=== PATIENT | female | born 1995 | race Two or more races ===

== ENCOUNTER 2017-02-07 16:10 | Emergency (ER) | payer BC ==
[2017-02-07 16:41] VITALS: BP 114/71
[2017-02-07] MEDS ORDERED: Acetaminophen TAB* 325 MG PO ONE (17:06)
[2017-02-07] MEDS: NS 0.9% 1000 ML* 2,000 ML IV ONE (17:59)
[2017-02-07 18:09] LABS: Hematocrit 37 % (35-47); Mean Corpuscular HGB Conc 33 g/dl (31-36); Mean Corpuscular Hemoglobin 26 pg (27-31); Mean Corpuscular Volume 81 fL (80-97); Mean Platelet Volume 10 um3 (7.4-10.4); Red Blood Count 4.57 10^6/ul (4.0-5.4); Red Cell Distribution Width 14 % (10.5-15); White Blood Count 20.1 10^3/ul (3.5-10.8)
[2017-02-07 18:23] LABS: C Reactive Protein 56.17 mg/L (< 5.00)
[2017-02-07 18:37] LABS: Mono Internal Control QC Line Present
[2017-02-07 18:38] LABS: Albumin 4.5 g/dL (3.2-5.2); BUN/Creatinine Ratio 14.3 (8-20); Calcium 9.3 mg/dL (8.6-10.3); EGFR African American 156.6 (>60); EGFR Non-African American 121.7 (>60); Globulin 3.3 g/dL (2-4); Manual Entry Verification CAR0052; Potassium 3.3 mmol/L (3.5-5.0); Total Bilirubin 0.6 mg/dL (0.2-1.0); Total Protein 7.8 g/dL (6.4-8.9)
[2017-02-07] MEDS ORDERED: Clindamycin CAP* 150 MG PO ONE ×2 (18:58→18:59)
--- NOTE | 2017-02-07 19:06 | ED ---
Conchis Ortiz SooYoung, scribed for Srinivasan Raya MD on 02/07/17 at 1646 . Throat Pain/Nasal Congestion - HPI Summary HPI Summary: A 21 y/o F presents to ED with c/o fever onset last night approx 2200. Pt states vomiting about every four hours (4 episodes), diffuse MOJICA, anterior neck stiffness. Has not eaten today. She states having a small amount of blood after using the bathroom and wiping last night. Denies abd pain, cough, rashes, diarrhea, rhinorrhea, ear pain. She states she has not been feeling extra tired lately. - History of Current Complaint Chief Complaint: EDGeneral Time Seen by Provider: 02/07/17 16:41 Hx Obtained From: Patient Onset/Duration: Sudden Onset, Lasting Hours, Still Present Severity: Moderate Cough: None - Allergies/Home Medications Allergies/Adverse Reactions: Allergies Allergy/AdvReac Type Severity Reaction Status Date / Time Penicillins [PCN] Allergy Flushing Verified 02/07/17 16:18 Promethazine [From Phenergan] Allergy Agitation Verified 02/07/17 16:17 PMH/Surg Hx/FS Hx/Imm Hx Previously Healthy: Yes Opthamlomology History: Denies: Hx Legally Blind Infectious Disease History: No Infectious Disease History: Denies: Traveled Outside the [place] in Last 30 Days - Family History Known Family History: Positive: Cardiac Disease, Hypertension, Diabetes - Social History Occupation: Student Lives: With Family - roommates Review of Systems Positive: Fever Positive: Sore Throat Negative: Cough Positive: Vomiting. Negative: Abdominal Pain Positive: other - pos: small amount blood when wiping after BM Positive: Arthralgia - mild neck stiffness Positive: Headache - diffuse All Other Systems Reviewed And Are Negative: Yes Physical Exam - Summary Physical Exam Summary: NUCHAL RIGIDITY; ANTERIOR CHAIN ADENOPATHY, The patient is well-nourished in no acute distress and in no acute pain. The skin is warm and dry and skin color reflects adequate perfusion. HEENT: The head is normocephalic and atraumatic. The pupils are equal and reactive. The conjunctivae are clear and without drainage. Nares are patent and without drainage. Mouth reveals moist mucous membranes and the throat is without exudate. The external ears are intact. The ear canals are patent and without drainage. The tympanic membranes are intact. THROAT IS ERYTHEMATOUS. Neck is supple with full range of motion and non-tender. There are no carotid bruits. There is no neck vein distension. Respiratory: Chest is non-tender. Lungs are clear to auscultation and breath sounds are symmetrical and equal. Cardiovascular: Hear is regular rate and rhythm. There is no murmur or rub auscultated. There is no peripheral edema and pulses are symmetrical and equal. Abdomen: The abdomen is soft and non-tender. There are normal bowel sounds heard in all four quadrants and there is no organomegaly palpated. Musculoskeletal: There is no back pain noted. Extremities are non-tender with full range of motion. There is good capillary refill. There is no peripheral edema or calf tenderness elicited. Neurological: Patient is alert and oriented to person, place and time. The patient has symmetrical motor strength in all four extremities. Cranial nerves are grossly intact. Deep tendon reflexes are symmetrical and equal in all four extremities. Psychiatric: The patient has an appropriate affect and does not exhibit any anxiety or depression. Triage Information Reviewed: Yes Vital Signs On Initial Exam: Initial Vitals Temp Pulse Resp BP Pulse Ox 100.0 F 110 20 114/70 100 02/07/17 16:13 02/07/17 16:13 02/07/17 16:13 02/07/17 16:13 02/07/17 16:13 Vital Signs Reviewed: Yes Diagnostics - Vital Signs Vital Signs Temp Pulse Resp BP Pulse Ox 02/07/17 16:33 103.1 F 110 16 114/71 98 02/07/17 16:13 100.0 F 110 20 114/70 100 - Laboratory Lab Results: Lab Results 02/07/17 02/07/17 02/07/17 Range/Units 17:03 17:55 17:55 WBC 20.1 H (3.5-10.8) 10^3/ul RBC 4.57 (4.0-5.4) 10^6/ul Hgb 12.0 (12.0-16.0) g/dl Hct 37 (35-47) % MCV 81 (80-97) fL MCH 26 L (27-31) pg MCHC 33 (31-36) g/dl RDW 14 (10.5-15) % Plt Count 141 L (150-450) 10^3/ul MPV 10 (7.4-10.4) um3 Neut % (Auto) 90.2 H (38-83) % Lymph % (Auto) 4.1 L (25-47) % Calloway % (Auto) 4.2 (1-9) % Eos % (Auto) 0 (0-6) % Baso % (Auto) 1.5 (0-2) % Absolute Neuts (auto) 18.2 H (1.5-7.7) 10^3/ul Absolute Lymphs (auto) 0.8 L (1.0-4.8) 10^3/ul Absolute Monos (auto) 0.8 (0-0.8) 10^3/ul Absolute Eos (auto) 0 (0-0.6) 10^3/ul Absolute Basos (auto) 0.3 H (0-0.2) 10^3/ul Absolute Nucleated RBC 0 10^3/ul Nucleated RBC % 0 Sodium (133-145) mmol/L Potassium (3.5-5.0) mmol/L Chloride (101-111) mmol/L Carbon Dioxide (22-32) mmol/L Anion Gap (2-11) mmol/L BUN (6-24) mg/dL Creatinine (0.51-0.95) mg/dL Est GFR ( Amer) (>60) Est GFR (Non-Af Amer) (>60) BUN/Creatinine Ratio (8-20) Glucose (70-100) mg/dL Lactic Acid 1.0 (0.5-2.0) mmol/L Calcium (8.6-10.3) mg/dL Total Bilirubin (0.2-1.0) mg/dL AST (13-39) U/L ALT (7-52) U/L Alkaline Phosphatase (34-104) U/L C-Reactive Protein (< 5.00) mg/L Total Protein (6.4-8.9) g/dL Albumin (3.2-5.2) g/dL Globulin (2-4) g/dL Albumin/Globulin Ratio (1-3) Monoscreen Negative (Negative) Group A Strep Rapid Positive H (Negative) 02/07/17 Range/Units 17:55 WBC (3.5-10.8) 10^3/ul RBC (4.0-5.4) 10^6/ul Hgb (12.0-16.0) g/dl Hct (35-47) % MCV (80-97) fL MCH (27-31) pg MCHC (31-36) g/dl RDW (10.5-15) % Plt Count (150-450) 10^3/ul MPV (7.4-10.4) um3 Neut % (Auto) (38-83) % Lymph % (Auto) (25-47) % Calloway % (Auto) (1-9) % Eos % (Auto) (0-6) % Baso % (Auto) (0-2) % Absolute Neuts (auto) (1.5-7.7) 10^3/ul Absolute Lymphs (auto) (1.0-4.8) 10^3/ul Absolute Monos (auto) (0-0.8) 10^3/ul Absolute Eos (auto) (0-0.6) 10^3/ul Absolute Basos (auto) (0-0.2) 10^3/ul Absolute Nucleated RBC 10^3/ul Nucleated RBC % Sodium 132 L (133-145) mmol/L Potassium 3.3 L (3.5-5.0) mmol/L Chloride 101 (101-111) mmol/L Carbon Dioxide 19 L (22-32) mmol/L Anion Gap 12 H (2-11) mmol/L BUN 9 (6-24) mg/dL Creatinine 0.63 (0.51-0.95) mg/dL Est GFR ( Amer) 156.6 (>60) Est GFR (Non-Af Amer) 121.7 (>60) BUN/Creatinine Ratio 14.3 (8-20) Glucose 101 H (70-100) mg/dL Lactic Acid (0.5-2.0) mmol/L Calcium 9.3 (8.6-10.3) mg/dL Total Bilirubin 0.60 (0.2-1.0) mg/dL AST 14 (13-39) U/L ALT 8 (7-52) U/L Alkaline Phosphatase 45 (34-104) U/L C-Reactive Protein 56.17 H (< 5.00) mg/L Total Protein 7.8 (6.4-8.9) g/dL Albumin 4.5 (3.2-5.2) g/dL Globulin 3.3 (2-4) g/dL Albumin/Globulin Ratio 1.4 (1-3) Monoscreen (Negative) Group A Strep Rapid (Negative) Result Diagrams: 02/07/17 17:55 02/07/17 17:55 Lab Statement: Any lab studies that have been ordered have been reviewed, and results considered in the medical decision making process. EENT Course/Dx - Course Course Of Treatment: Pt is a 21 y/o F presents with fever, vomiting (4x), MOJICA and mild neck stiffness onset last night approx 2200. Denies abd pain, cough, rashes, diarrhea, rhinorrhea, ear pain. Pt given fluids and Tylenol. CRP is 56.17. Strep A test is positive. Calloway is negative. Will D/C home with Clindamyacin. Pt did not want steroids or IV abx. - Differential Diagnoses Differential Diagnoses: Pharyngitis, Tonsilitis - Diagnoses Provider Diagnoses: Strep pharyngitis Discharge - Discharge Plan Condition: Stable Disposition: HOME Prescriptions: Clindamycin Cap(NF) [Cleocin 300 mg Cap(NF)] 300 mg PO Q6H #40 cap Patient Education Materials: Strep Throat (ED), Clindamycin (By mouth) Referrals: [facility] [Primary Care Provider] - Additional Instructions: Take your medication as prescribed. And take Tylenol as needed. The documentation as recorded by the Conchis dominguez SooYoung accurately reflects the service I personally performed and the decisions made by , Srinivasan Raya MD.
== END 2017-02-07 21:08 | disposition home or self-care (01) ==
LOC: ED 16:10
DX: J02.0 Streptococcal pharyngitis (principal); J02.9 Acute pharyngitis, unspecified; R50.9 Fever, unspecified; R11.10 Vomiting, unspecified; R51 Headache
CPT/HCPCS: 36415; 80053; 83605; 85025; 86140; 86308; 87651; 96360; 99283; A9270-GY

== ENCOUNTER 2017-06-01 14:13 | Emergency (ER) | payer BC ==
[2017-06-01 14:31] VITALS: BP 112/56
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
[2017-06-01] MEDS ORDERED: Rabies Vaccine, PCEC INJ* 1 ml IM ONE (14:46)
[2017-06-01] MEDS ORDERED: Tetan/Diph/Pertus SYR(Tdap)* 0.5 ML SYR(BOOSTRIX) use SYR IM ONE (14:46)
[2017-06-01] MEDS ORDERED: Rabies Immune Globulin 2 ML* 150 UNITS/ML VIAL IM ONE ×2 (14:46→14:48)
== END 2017-06-01 15:45 | disposition home or self-care (01) ==
LOC: UCEAST 14:13
DX: Z20.3 Contact with and (suspected) exposure to rabies (principal); Z88.0 Allergy status to penicillin
CPT/HCPCS: 90375; 90471; 90472; 90675; 90715; 96372; 99211; G0463

== ENCOUNTER 2018-05-29 21:53 | Emergency (ER) | payer BC ==
--- NOTE | 2018-05-30 00:10 | ED ---
HPI Chest Pain - HPI Summary HPI Summary: This patient is a 22 year old F presenting to [facility] with a chief complaint of mid-sternal CP that occurred earlier today and resolved [employer]. The patient rates the pain 4/10 in severity. Symptoms aggravated by nothing. Symptoms alleviated by nothing. Patient reports heavier vaginal bleeding (than her normal period), dizziness, and SOB. Patient denies fever, headache, blurred vision, diplopia, sore throat, ear ache, abd pain, dysuria, hematuria, edema, bruising, anxiety, and depression. Patient reports she has a history of heart murmur. - History of Current Complaint Chief Complaint: EDChestPainROMI Hx Obtained From: Patient Hx Last Menstrual Period: 05/02/17 Onset/Duration: Started Hours Ago, Atraumatic, Resolved Timing: Constant Initial Severity: Moderate Current Severity: Moderate Pain Intensity: 4 Pain Scale Used: 0-10 Numeric Chest Pain Location: Mid Sternal Character: Tightness Aggravating Factor(s): Nothing Alleviating Factor(s): Nothing Associated Signs and Symptoms: Positive: Other: - Positive heavier vaginal bleeding (than her normal period), dizziness, and SOB. Negative fever, headache , blurred vision, diplopia, sore throat, ear ache, abd pain, dysuria, hematuria , edema, bruising, anxiety, and depression. - Allergy/Home Medications Allergies/Adverse Reactions: Allergies Allergy/AdvReac Type Severity Reaction Status Date / Time MS Penicillins [PCN] Allergy Flushing Verified 05/29/18 22:22 MS Promethazine Allergy Agitation Verified 05/29/18 22:22 [From Phenergan] PMH/Surg Hx/FS Hx/Imm Hx Previously Healthy: No Cardiovascular History: Reports: Other Cardiovascular Problems/Disorders - Positive heart murmur Sensory History: Denies: Hx Legally Blind Opthamlomology History: Denies: Hx Legally Blind - Surgical History Surgery Procedure, Year, and Place: septoplasty, heart cath at age 6 Infectious Disease History: No Infectious Disease History: Denies: Traveled Outside the [place] in Last 30 Days - Family History Known Family History: Positive: Cardiac Disease, Hypertension, Diabetes - Social History Occupation: Student Lives: Dormitory/Roommates Alcohol Use: Rare Hx Substance Use: No Substance Use Type: Reports: None Hx Tobacco Use: No Smoking Status (MU): Never Smoked Tobacco Review of Systems Negative: Fever Negative: Blurred Vision, Diplopia Negative: Sore Throat, Ear Ache Positive: Chest Pain Positive: Shortness Of Breath Negative: Abdominal Pain Genitourinary: Other - Positive increased vaginal bleeding Negative: dysuria, hematuria Negative: Edema Negative: Bruising Negative: Headache Negative: Anxious, Depressed All Other Systems Reviewed And Are Negative: No Physical Exam - Summary Physical Exam Summary: Appearance: Alert, conversive, nontoxic appearing Skin: Warm, dry, no mottling, no rashes, no contusions HEENT: EOMI, PERRL, moist mucous membranes Neck: No masses on the neck, supple Respiratory: Clear to auscultation, breath sounds present, no rales, no rhonchi , no wheezes Cardiovascular: RRR, pulses are symmetrical in both lower and upper extremities Abdomen: Soft, non-tender Bowel Sounds: Present Musculoskeletal: No CVA tenderness, no obvious deformity, moving all extremities in a grossly normal manner Neurological: A&Ox3, CN II-XII Intact, moving all extremities symmetrically Psychiatric: Normal affect and mood Triage Information Reviewed: Yes Vital Signs On Initial Exam: Initial Vitals Temp Pulse Resp BP Pulse Ox 98.4 F 74 22 123/86 99 05/29/18 21:54 05/29/18 21:54 05/29/18 21:54 05/29/18 21:54 05/29/18 21:54 Vital Signs Reviewed: Yes Diagnostics - Vital Signs Vital Signs Temp Pulse Resp BP Pulse Ox 05/29/18 21:54 98.4 F 74 22 123/86 99 - Laboratory Result Diagrams: 05/30/18 00:14 05/30/18 00:14 Lab Statement: Any lab studies that have been ordered have been reviewed, and results considered in the medical decision making process. - Radiology CXR Radiology Interpretation Completed By: ED Physician - CXR reveals, per ED physician, no acute disease. - EKG 2203 Cardiac Rate: NL EKG Rhythm: Sinus Rhythm - 65 BPM EKG Interpretation: Incomplete RBBB. Prolonged QRS Re-Evaluation - Re-Evaluation First Eval Re-Evaluation Time: 01:05 Change: Unchanged Comment: Discussed results and plan of care. Chest Pain Course/Dx - Course Course Of Treatment: This patient is a 22 year old F presenting to [facility] with a chief complaint of CP that occurred earlier today and resolved [employer]. Patient reports she has a history of heart murmur. Physical Exam Findings: Nml. An EKG reveals sinus rhythm at 65 BPM, incomplete RBBB, and prolonged QRS. CXR reveals , per ED physician, no acute disease. Bloodwork and UA obtained. Patient will be discharged with follow up from PCP. The patient is agreeable with this plan. - Diagnoses Provider Diagnoses: Chest pain Discharge - Sign-Out/Discharge Documenting (check all that apply): Patient Departure - Discharge - Discharge Plan [facility] - Attestations Scribe Attestation: This is alberto Cohen documenting for attending Shy Francis MD. User Type: Provider with Scribe Provider Attestation: The documentation recorded by the scribe accurately reflects the service I personally performed and the decisions made by me.
[2018-05-30 00:31] LABS: Hematocrit 35 % (35-47); Hemoglobin 11.7 g/dl (12.0-16.0); Mean Corpuscular HGB Conc 34 g/dl (31-36); Mean Corpuscular Hemoglobin 28 pg (27-31); Mean Corpuscular Volume 82 fL (80-97); Mean Platelet Volume 10.1 um3 (7.4-10.4); Platelet Count 151 10^3/ul (150-450); Red Blood Count 4.21 10^6/ul (4.00-5.40); Red Cell Distribution Width 14 % (10.5-15); White Blood Count 9.3 10^3/ul (3.5-10.8)
[2018-05-30 00:41] LABS: ABS Basophils 0.1 10^3/ul (0-0.2); ABS Eosinophils 0.2 10^3/ul (0-0.6); ABS Lymphocytes 2.3 10^3/ul (1.0-4.8); ABS Monocytes 0.6 10^3/ul (0-0.8); ABS Neutrophils 6.2 10^3/ul (1.5-7.7); ABS Nucleated RBC 0 10^3/ul
[2018-05-30 00:59] LABS: Eosinophil % 1.9 % (0-6); Nucleated Red Blood Cells % 0
[2018-05-30 02:17] VITALS: BP 111/50
--- NOTE | 2018-05-30 07:36 | RAD ---
HISTORY: chest pain COMPARISONS: None VIEWS: 1: frontal portable view of the chest at 1:21 AM FINDINGS: LINES AND TUBES: None. CARDIOMEDIASTINAL SILHOUETTE: The cardiomediastinal silhouette is normal for portable technique. PLEURA: The costophrenic angles are sharp. No pleural abnormalities are noted. LUNG PARENCHYMA: The lungs are clear. ABDOMEN: The upper abdomen is clear. There is no subphrenic gas. BONES AND SOFT TISSUES: No bone or soft tissue abnormalities are noted. IMPRESSION: NO ACTIVE CARDIOPULMONARY DISEASE. R1
== END 2018-05-30 02:13 | disposition home or self-care (01) ==
LOC: ED 21:53
DX: R07.9 Chest pain, unspecified (principal); I45.10 Unspecified right bundle-branch block
CPT/HCPCS: 36415; 71045; 80053; 84443; 85025; 93005; 99282

== ENCOUNTER 2019-02-23 18:32 | Emergency (ER) | payer BC ==
--- NOTE | 2019-02-23 18:41 | ED ---
HPI Chest Pain - HPI Summary HPI Summary: A 23 y/o female brought in by [facility] presents to [facility] with a chief complaint of intermittent CP today. She denies SOB, syncope, abdominal pain, back pain, headache, N/V. She reports some dizziness. She says that she was studying when she had a few episodes of chest tightness around her left armpit lasting for a few seconds. She states that she has had some coffee the past few days while studying for final exams. She denies having anything unusual to eat today. She had a Hx of a heart murmur at 3 y/o and had a cardiac catheterization at 6 y/o. She has not seen a cash clerk in 2 years but she reports that she has not taken any medication or has had any heart trouble since then. She denies EtOH or drug use today. - History of Current Complaint Hx Obtained From: Patient, EMS Hx Last Menstrual Period: 05/02/17 Onset/Duration: Started Hours Ago, Still Present Timing: Intermittent, Lasting Seconds Initial Severity: Mild Current Severity: Mild Pain Intensity: 2 Pain Scale Used: 0-10 Numeric Chest Pain Location: Diffuse Chest Pain Radiates: No Character: Tightness Aggravating Factor(s): Nothing Alleviating Factor(s): Nothing Associated Signs and Symptoms: Positive: Dizziness. Negative: Headaches, Shortness of Breath, Nausea, Abdominal Pain, Vomiting - Allergy/Home Medications Allergies/Adverse Reactions: Allergies Allergy/AdvReac Type Severity Reaction Status Date / Time Penicillins Allergy Flushing Verified 02/23/19 18:48 promethazine [From Phenergan] Allergy Agitation Verified 02/23/19 18:48 PMH/Surg Hx/FS Hx/Imm Hx Cardiovascular History: Reports: Other Cardiovascular Problems/Disorders - Positive heart murmur Sensory History: Denies: Hx Legally Blind Opthamlomology History: Denies: Hx Legally Blind - Surgical History Surgery Procedure, Year, and Place: septoplasty, heart cath at age 6 - Family History Known Family History: Positive: Cardiac Disease, Hypertension, Diabetes - Social History Alcohol Use: Rare Hx Substance Use: No Substance Use Type: Reports: None Hx Tobacco Use: No Smoking Status (MU): Never Smoked Tobacco Review of Systems Positive: Chest Pain - intermittent Negative: Shortness Of Breath Negative: Abdominal Pain, Vomiting, Nausea Negative: Myalgia - back pain Neurological: Other Negative: Headache, Syncope All Other Systems Reviewed And Are Negative: Yes Physical Exam - Summary Physical Exam Summary: Appearance: Well-appearing, Well-nourished, lying in bed comfortably Skin: Warm, dry, no obvious rash Eyes: sclera anicteric, no conjunctival pallor ENT: mucous membranes moist, pharynx appears normal Neck: Supple, nontender Respiratory: Clear to auscultation, no signs of respiratory distress Cardiovascular: Normal S1, S2. No murmurs. Normal distal pulses in tibial and radial bilaterally. No chest wall tenderness. Abdomen: Soft, nontender, normal active bowel sounds present Musculoskeletal: Normal, Strength/ROM Intact Neurological: A&Ox3, awake and alert, mentation is normal, speech is fluent and appropriate Psychiatric: affect is normal, does not appear anxious or depressed Triage Information Reviewed: Yes Vital Signs Reviewed: Yes Diagnostics - Laboratory Lab Statement: Any lab studies that have been ordered have been reviewed, and results considered in the medical decision making process. - Radiology CXR Radiology Interpretation Completed By: ED Physician Summary of Radiographic Findings: No acute process. Pending official imaigng report. - EKG 18:50 Cardiac Rate: NL - 65 bpm EKG Rhythm: Sinus Rhythm Summary of EKG Findings: NSR at 65 bpm, incomplete RBBB, otherwise normal EKG. Chest Pain Course/Dx - Course Course Of Treatment: A 23 y/o female brought in by [facility] presents to [facility] with a chief complaint of intermittent CP today. The physical exam revealed no chest wall tenderness. EKG showed NSR at 65 bpm, incomplete RBBB, otherwise normal EKG. CXR showed no acute process. The patient will be discharged home and was instructed to follow up with [facility]. The patient is agreeable with this plan. - Diagnoses Provider Diagnoses: Chest wall pain, Muscle spasm Discharge - Sign-Out/Discharge Documenting (check all that apply): Patient Departure - DC Patient Received Moderate/Deep Sedation with Procedure: No - Discharge Plan Condition: Good Disposition: HOME Patient Education Materials: Muscle Spasm (ED) Referrals: [facility] [Z.BUSINESS, APPLICATION, OTHER] - If Needed - Billing Disposition and Condition Condition: GOOD Disposition: Home - Attestation Statements Document Initiated by Scribe: Yes Documenting Scribe: Rickey Matthews Provider For Whom Scribe is Documenting (Include Credential): Carmelo Bhandari MD Scribe Attestation: I, Rickey Matthews, scribed for Carmelo Bhandari MD on 02/25/19 at 1042. Scribe Documentation Reviewed: Yes Provider Attestation: The documentation as recorded by the [email or web address] accurately reflects the service I personally performed and the decisions made by me, Carmelo Bhandari MD Status of Scribe Document: Viewed
[2019-02-23 20:02] VITALS: BP 122/77
== END 2019-02-23 20:01 | disposition home or self-care (01) ==
LOC: ED 18:32
DX: R07.89 Other chest pain (principal); M62.838 Other muscle spasm; I45.10 Unspecified right bundle-branch block; Z88.0 Allergy status to penicillin
CPT/HCPCS: 71046; 93005; 99282